=== PATIENT | male | born 1990 | race Caucasian/White ===

== ENCOUNTER 2024-04-06 18:51 | Emergency (ER) | payer SELFPAY ==
[2024-04-06] MEDS ORDERED: methylPREDNISolone Sod Succ/PF 125 MG/2 ML VIAL ONE (20:15)
[2024-04-06] MEDS ORDERED: Famotidine/PF 20 mg/2ml Vial ONE (20:15)
[2024-04-06] MEDS ORDERED: EPINEPHrine 1 MG/ML VIAL ONE (20:15)
== END 2024-04-06 22:05 | disposition home or self-care (01) ==
LOC: ERS 18:51
DX: T78.2XXA Anaphylactic shock, unspecified, initial encounter (principal)
CPT/HCPCS: 96372; 96374; 96375; J0171; J2919; J3490